=== PATIENT | female | born 1990 | race Caucasian/White ===

== ENCOUNTER 2022-09-13 23:21 | Inpatient (IN) | payer OTHER ==
[2022-09-13 23:28] VITALS: BMI 31.9
[2022-09-14] MEDS ORDERED: FAMOTIDINE 20 MG/50 ML IVPB 20 MG/50 ML MG IVPB ONE (00:04)
[2022-09-14] MEDS ORDERED: SODIUM CHLORIDE 1,000 ML IV STA (00:04)
[2022-09-14] MEDS ORDERED: ACETAMINOPHEN 1000 MG/100 ML BAG IVPB ONE (00:04)
[2022-09-14] MEDS ORDERED: ACETAMINOPHEN INJECTION 100 ML IVPB ONE (00:11)
[2022-09-14] MEDS ORDERED: FAMOTIDINE 10 MG/ML VIAL IVPB ONE (00:12)
[2022-09-14] MEDS ORDERED: FENTANYL CITRATE/PF 50 MCG/ML VIAL IVPUSH ONE (00:52)
[2022-09-14] MEDS ORDERED: FENTANYL CITRATE/PF 50 MCG/ML VIAL ONE ×2 (00:53→01:18)
[2022-09-14 01:01] LABS: VENOUS BASE EXCESS -3.9 mmol/L (-2-2); VENOUS PCO2 36.5 mmHg (38-52); VENOUS PH 7.372 (7.310-7.410)
[2022-09-14 01:07] LABS: BASO % 0.6 % (0-2.0); EOS % 2.6 % (0-4.5); HEMATOCRIT 36.2 % (32.4-45.2); HEMOGLOBIN 11.8 GM/dL (10.7-15.3); LYMPH % 20.4 % (8-40); MCH 23.9 pg (25.7-33.7); MCHC 32.5 g/dl (32.0-36.0); MEAN CELL VOLUME 73.6 fl (80-96); MEAN PLT VOLUME 7.6 fl (7.5-11.1); MONO % 6.8 % (3.8-10.2); NEUT % 69.6 % (42.8-82.8); PLATELET COUNT 385 10^3/uL (134-434); RBC 4.92 M/mm3 (3.60-5.2); RDW 16.1 % (11.6-15.6); WHITE BLOOD COUNT 17.8 K/mm3 (4.0-10.0)
[2022-09-14 01:26] LABS: INR 2.89 (0.83-1.09); PROTHROMBIN TIME (PATIENT) 33.2 SEC (9.7-13.0)
[2022-09-14 01:32] LABS: POTASSIUM 4.3 mmol/L (3.5-5.1)
[2022-09-14 01:34] LABS: ALBUMIN 3.9 g/dl (3.4-5.0); BLOOD UREA NITROGEN 10.9 mg/dL (7-18); CALCIUM 9.4 mg/dL (8.5-10.1); MAGNESIUM 1.9 mg/dL (1.8-2.4)
[2022-09-14 01:37] LABS: CREATININE 0.8 mg/dL (0.55-1.3)
[2022-09-14 01:39] LABS: BILIRUBIN,TOTAL 0.8 mg/dL (0.2-1); TOT PROT 8.6 g/dl (6.4-8.2)
[2022-09-14 01:47] LABS: EPI CELLS 19 /uL (0-25.1); HYALINE CASTS 0 /uL (0-3.1); URINE APPEARANCE CLEAR; URINE BACTERIA 108 /uL (0-1359); URINE BILIRUBIN NEGATIVE (NEGATIVE); URINE COLOR YELLOW; URINE GLUCOSE (UA) NEGATIVE (NEGATIVE); URINE KETONE NEGATIVE (NEGATIVE); URINE LEUK ESTERASE NEGATIVE (NEGATIVE); URINE NITRITE NEGATIVE (NEGATIVE); URINE PROTEIN NEGATIVE (NEGATIVE); URINE RBC 12 /uL (0-23.9); URINE UROBILINOGEN 0.2 mg/dL (0.2-1.0); URINE WBC 7 /uL (0-25.8)
[2022-09-14] MEDS ORDERED: HYDROmorphone HCl 2 MG/ML VIAL IVPUSH ONE ×2 (01:57→04:06)
[2022-09-14] MEDS ORDERED: ONDANSETRON 4 MG/2 ML VIAL IVPUSH ONE (01:58)
[2022-09-14] MEDS ORDERED: HYDROmorphone HCl 2 MG/ML VIAL ONE ×2 (01:58→04:07)
[2022-09-14] MEDS ORDERED: ONDANSETRON 4 MG/2 ML VIAL ONE (01:58)
[2022-09-14] MEDS ORDERED: ACETAMINOPHEN 1000 MG/100 ML BAG IVPB PRN (06:14)
[2022-09-14] MEDS ORDERED: WARFARIN NA 1 MG TABLET PO SCH (07:00)
[2022-09-14] MEDS ORDERED: WARFARIN NA 3 MG TABLET PO SCH (07:00)
[2022-09-14] MEDS ORDERED: PIPERACILLIN/TAZOB 3.375 GM 3.375 GM in DEXTROSE 5%-WATER - 50 ML IVPB SCH ×3 (07:15→10:00)
[2022-09-14] MEDS: GABAPENTIN 300 MG CAPSULE PO SCH ×3 (07:42→22:20)
[2022-09-14] MEDS: DICYCLOMINE HCL 10 MG CAPSULE PO PRN ×2 (07:43→18:20)
[2022-09-14] MEDS: ACETAMINOPHEN 1000 MG/100 ML BAG IVPB SCH ×3 (07:49→23:13)
[2022-09-14 10:59] LABS: BASO % 0.8 % (0-2.0); EOS % 3.3 % (0-4.5); HEMATOCRIT 35.9 % (32.4-45.2); HEMOGLOBIN 11.2 GM/dL (10.7-15.3); LYMPH % 26.3 % (8-40); MCH 23.6 pg (25.7-33.7); MCHC 31.2 g/dl (32.0-36.0); MEAN CELL VOLUME 75.6 fl (80-96); MEAN PLT VOLUME 7.6 fl (7.5-11.1); MONO % 9.1 % (3.8-10.2); NEUT % 60.5 % (42.8-82.8); PLATELET COUNT 355 10^3/uL (134-434); RBC 4.76 M/mm3 (3.60-5.2); RDW 15.9 % (11.6-15.6); WHITE BLOOD COUNT 11.1 K/mm3 (4.0-10.0)
[2022-09-14 11:05] LABS: INR 3.06 (0.83-1.09); PROTHROMBIN TIME (PATIENT) 35.1 SEC (9.7-13.0)
[2022-09-14 11:18] LABS: POTASSIUM 3.7 mmol/L (3.5-5.1)
[2022-09-14 11:20] LABS: BLOOD UREA NITROGEN 7.9 mg/dL (7-18); CALCIUM 8.6 mg/dL (8.5-10.1)
[2022-09-14 11:21] LABS: ALBUMIN 3.9 g/dl (3.4-5.0)
[2022-09-14 11:23] LABS: CREATININE 0.8 mg/dL (0.55-1.3)
[2022-09-14 11:24] LABS: PHOSPHOROUS 4.7 mg/dL (2.5-4.9)
[2022-09-14 11:25] LABS: BILIRUBIN,TOTAL 0.8 mg/dL (0.2-1)
[2022-09-14] MEDS: CEFTRIAXONE 1 GM in DEXTROSE 5%-WATER - 50 ML IVPB SCH (12:11)
[2022-09-14 13:05] LABS: ERYTHROCYTE SEDIMENTATION RATE 36 mm/hr (0-20)
[2022-09-14] MEDS: HYDROmorphone HCl 2 MG/ML VIAL IVPB PRN ×2 (14:23→20:18)
[2022-09-14] MEDS ORDERED: ONDANSETRON 4 MG/2 ML VIAL IVPB ONE (17:38)
[2022-09-14] MEDS: WARFARIN NA 5 MG, WARFARIN NA 2 MG PO SCH (18:22)
[2022-09-14] MEDS: MELATONIN 1 MG TABLET PO PRN (22:18)
[2022-09-14] MEDS: NORTRIPTYLINE HCL 25 MG CAPSULE PO SCH (22:20)
[2022-09-14] MEDS: PANTOPRAZOLE 20 MG TABLET PO SCH (22:23)
[2022-09-15] MEDS: GABAPENTIN 300 MG CAPSULE PO SCH ×3 (06:36→21:10)
[2022-09-15] MEDS ORDERED: HYDROmorphone HCl 2 MG/ML VIAL IVPB PRN (08:39)
[2022-09-15 10:00] LABS: BASO % 0.7 % (0-2.0); EOS % 6.2 % (0-4.5); HEMATOCRIT 32.2 % (32.4-45.2); HEMOGLOBIN 10.4 GM/dL (10.7-15.3); LYMPH % 22.1 % (8-40); MCH 23.9 pg (25.7-33.7); MCHC 32.3 g/dl (32.0-36.0); MEAN CELL VOLUME 74.2 fl (80-96); MEAN PLT VOLUME 7.5 fl (7.5-11.1); MONO % 10.1 % (3.8-10.2); NEUT % 60.9 % (42.8-82.8); PLATELET COUNT 281 10^3/uL (134-434); RBC 4.34 M/mm3 (3.60-5.2); RDW 16.3 % (11.6-15.6); WHITE BLOOD COUNT 7.3 K/mm3 (4.0-10.0)
[2022-09-15 10:16] LABS: POTASSIUM 3.9 mmol/L (3.5-5.1)
[2022-09-15 10:21] LABS: ALBUMIN 3.4 g/dl (3.4-5.0); BLOOD UREA NITROGEN 5.8 mg/dL (7-18); CALCIUM 8.5 mg/dL (8.5-10.1); MAGNESIUM 2.2 mg/dL (1.8-2.4)
[2022-09-15 10:24] LABS: CREATININE 0.7 mg/dL (0.55-1.3)
[2022-09-15 10:26] LABS: BILIRUBIN,TOTAL 0.5 mg/dL (0.2-1); TOT PROT 7.2 g/dl (6.4-8.2)
[2022-09-15] MEDS: CEFTRIAXONE 1 GM in DEXTROSE 5%-WATER - 50 ML IVPB SCH (10:36)
[2022-09-15] MEDS: PANTOPRAZOLE 20 MG TABLET PO SCH ×2 (10:36→21:10)
[2022-09-15] MEDS: ACETAMINOPHEN 1000 MG/100 ML BAG IVPB SCH ×2 (12:34→23:52)
[2022-09-15] MEDS: CYANOCOBALAMIN 1,000 MCG TABLET (FP) PO SCH (13:48)
[2022-09-15] MEDS: WARFARIN NA 5 MG, WARFARIN NA 2 MG PO SCH (20:10)
[2022-09-15] MEDS: NORTRIPTYLINE HCL 25 MG CAPSULE PO SCH (22:54)
[2022-09-15] MEDS: MELATONIN 1 MG TABLET PO PRN (23:51)
[2022-09-16] MEDS: ACETAMINOPHEN 1000 MG/100 ML BAG IVPB SCH (05:00)
[2022-09-16] MEDS: GABAPENTIN 300 MG CAPSULE PO SCH ×3 (05:16→22:15)
[2022-09-16 08:38] LABS: MAGNESIUM 2.1 mg/dL (1.8-2.4)
[2022-09-16 08:42] LABS: PHOSPHOROUS 4.7 mg/dL (2.5-4.9)
[2022-09-16] MEDS: CEFTRIAXONE 1 GM in DEXTROSE 5%-WATER - 50 ML IVPB SCH (10:22)
[2022-09-16] MEDS: PANTOPRAZOLE 20 MG TABLET PO SCH ×2 (10:23→22:16)
[2022-09-16] MEDS: CYANOCOBALAMIN 1,000 MCG TABLET (FP) PO SCH (10:23)
[2022-09-16] MEDS: WARFARIN NA 5 MG, WARFARIN NA 2 MG PO SCH (19:08)
[2022-09-16] MEDS: oxyCODONE HCL 5 MG TABLET PO PRN (19:13)
[2022-09-16 22:16] VITALS: RESP 20
[2022-09-16] MEDS: NORTRIPTYLINE HCL 25 MG CAPSULE PO SCH (22:16)
[2022-09-17] MEDS: oxyCODONE HCL 5 MG TABLET PO PRN ×2 (00:23→10:39)
[2022-09-17] MEDS ORDERED: ACETAMINOPHEN 1000 MG/100 ML BAG IVPB ONE ×2 (03:13→13:30)
[2022-09-17] MEDS: GABAPENTIN 300 MG CAPSULE PO SCH ×2 (05:59→13:47)
[2022-09-17 10:02] LABS: INR 2.68 (0.83-1.09); PROTHROMBIN TIME (PATIENT) 30.8 SEC (9.7-13.0)
[2022-09-17 10:03] LABS: BASO % 0.9 % (0-2.0); HEMATOCRIT 30.9 % (32.4-45.2); HEMOGLOBIN 10.4 GM/dL (10.7-15.3); LYMPH % 26.4 % (8-40); MCH 24.4 pg (25.7-33.7); MCHC 33.6 g/dl (32.0-36.0); MEAN CELL VOLUME 72.7 fl (80-96); NEUT % 51.7 % (42.8-82.8); PLATELET COUNT 265 10^3/uL (134-434); RBC 4.26 M/mm3 (3.60-5.2); RDW 16.1 % (11.6-15.6); WHITE BLOOD COUNT 7.2 K/mm3 (4.0-10.0)
[2022-09-17] MEDS: CYANOCOBALAMIN 1,000 MCG TABLET (FP) PO SCH (10:13)
[2022-09-17] MEDS: PANTOPRAZOLE 20 MG TABLET PO SCH (10:13)
[2022-09-17 10:23] LABS: POTASSIUM 3.5 mmol/L (3.5-5.1)
[2022-09-17 10:39] LABS: ALBUMIN 3.4 g/dl (3.4-5.0); BLOOD UREA NITROGEN 7.3 mg/dL (7-18); CALCIUM 8.7 mg/dL (8.5-10.1); MAGNESIUM 2.1 mg/dL (1.8-2.4)
[2022-09-17 10:42] LABS: CREATININE 0.7 mg/dL (0.55-1.3)
[2022-09-17 10:43] LABS: PHOSPHOROUS 4.5 mg/dL (2.5-4.9)
[2022-09-17 10:44] LABS: BILIRUBIN,TOTAL 0.7 mg/dL (0.2-1); TOT PROT 7.3 g/dl (6.4-8.2)
[2022-09-17 13:29] VITALS: TEMP 97.6
[2022-09-17 14:18] VITALS: BP 101/69; PULSE 107
[2022-09-17] MEDS ORDERED: WARFARIN NA 5 MG, WARFARIN NA 3 MG PO SCH (18:00)
== END 2022-09-17 17:01 | disposition home or self-care (01) | DRG 251 ==
LOC: JER 23:21 → JERBED 09-14 02:20 → OBSVTOIN 09-14 06:09 → J6S 09-14 06:10
PROVIDERS: ADMIT Internal Medicine; ATTEND Internal Medicine
DX: R10.84 Generalized abdominal pain (principal); M45.9 Ankylosing spondylitis of unspecified sites in spine; K63.89 Other specified diseases of intestine; D68.59 Other primary thrombophilia; R16.0 Hepatomegaly, not elsewhere classified; E66.9 Obesity, unspecified; Z68.31 Body mass index [BMI] 31.0-31.9, adult; Z87.19 Personal history of other diseases of the digestive system; Z79.01 Long term (current) use of anticoagulants
CPT/HCPCS: 36415; 74174-TC; 74177-TC; 76700-TC; 80053; 81003; 82550; 82803; 83605; 83690; 83735; 84100; 84703; 85025; 85610; 85651; 85730; 86140; 86704; 86803; 87040; 87045; 87046; 87086; 87205; 87209; 87324; 87340; 87449; 87517; 93005; 93010; 99285-25; G0378; Q9967